=== PATIENT | male | born 2000 | race Caucasian/White ===

== ENCOUNTER 2018-02-01 03:08 | Emergency (ER) | payer BC, OTHER ==
[2018-02-01] MEDS ORDERED: Metoclopramide HCl 10 MG/2 ML VIAL ONE (04:36)
[2018-02-01] MEDS ORDERED: Acetaminophen 500 MG TAB ONE (04:36)
[2018-02-01] MEDS ORDERED: diphenhydrAMINE 50 MG/ML VIAL ONE (04:36)
[2018-02-01] MEDS ORDERED: Methocarbamol 500 MG TAB PO SCH (04:45)
[2018-02-01] MEDS ORDERED: Ketorolac Tromethamine 30 MG/ML VIAL ONE (06:41)
--- NOTE | 2018-02-01 09:24 | CT ---
PRELIMINARY REPORT/[facility]/EMERGENTY AFTER-HOURS PROCEDURE CT Head Without Intravenous Contrast CLINICAL HISTORY: 17 years old, male; Signs and symptoms; Other: Sudden onset of headache TECHNIQUE: Axial computed tomography images of the head/brain without intravenous contrast. COMPARISON: No relevant prior studies available. FINDINGS: Mildly limited due to streak artifacts Brain: Mild volume loss No hemorrhage. No significant white matter disease. No edema. Ventricles: Unremarkable. No ventriculomegaly. Bones/joints: Unremarkable. No acute fracture. Soft tissues: Unremarkable. Sinuses: Partial opacification of the right sphenoid sinus with secretions and mucosal thickening Mastoid air cells: Unremarkable as visualized. No mastoid effusion. IMPRESSION: Question right sphenoid sinusitis No intracranial hemorrhage. Please see discussion above. Thank you for allowing us to participate in the care of your patient. Dictated and Authenticated by: Lamberto Chung MD 02/01/2018 5:16 AM Central Time ([place] & [place]) FINAL REPORT CT BRAIN WITHOUT CONTRAST: Date: 02/01/18 FINDINGS/IMPRESSION: I agree with the preliminary report given by Yves. POS: [facility]
== END 2018-02-01 06:53 | disposition home or self-care (01) ==
LOC: ERS 03:08
DX: R51 Headache (principal); F17.220 Nicotine dependence, chewing tobacco, uncomplicated; Z71.6 Tobacco abuse counseling
CPT/HCPCS: 70450; 96361; 96374; 96375; 99406; J1200; J1885; J2765